=== PATIENT | female | born 1995 | race Caucasian/White ===

== ENCOUNTER 2018-07-10 14:00 | Outpatient (RCR) | payer OTHER, SELFPAY ==
--- NOTE | 2018-06-11 14:33 | HP.PTEVAL_ITS ---
Patient's Visit Information CARLENE SERRATO is a 22 year old F referred to Physical Therapy by Gregg Corral MD with a diagnosis of H/O SPINAL FUSION T5-T12 ADOLESCENT IDIOPATHETIC SCOLIOSIS THORACICLUMAR. Date of Evaluation: 06/11/18 Physical Therapist: Hemant Muro, PT, - Visit Plan Frequency: 2x /Week Duration: 4 Weeks Plan: Aquatic PT for thoracic,postural ex's,DLS,UE/LE strengtrhening,ROM - Subjective Subjective: This 22 y/o female presents to physical therapy to h/o spinal fusion T5-T12 and adolescent idiopathic scoliosis of thoracicolumbar.Patient has has scoliosis since 12 years old thus underwents s/p thoracic -lumbar fusion Oct 2007 , Jun to repair hardware 2007,. 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 Patient has had surgery from T1-T12.Pateint has had pain injections. Patient mutiple surgey's within 24 hours. Patient had extensive therapy. Patient then had last surgery to remove hardward. Patient has been having alot of pain in thoracic and right arm and right scapular.Thus patient had MRI of cervical spine. Patient has difficulty with ADL'S due to pain thus impairs QOL.Coughing /sneezing -. C/O parathesia right arm.Pain affects sleeping patterns. SOCAIL: lives with parents. VOCATION: unemployment - Pain Bilateral Back Pain Intensity (Out of 10): 3 Pain Intensity Range: 10 Right Shoulder Pain Intensity (Out of 10): 3 Pain Intensity Range: 10 - Objective POSTURE : increase lordosis lumbar ,right scapular protracted elevated , thoracic kyphosis. GAIT: normal eusebia reciprocal pattern. NEURO: c/o parathesia hand,refelxes C5-6-7,L3-4,L4-5,L5-S1 1/3. THORACIC ROM: NT. CERVICAL ROM: min loss flexion ,extension,lateral flexion,rotation,. MMT: 4/5 except 4-/5 shoulders ,BLE quads/hams 4/5,hip 4/5,ankle 4/5 - Special Tests C/S Radiculapathy - Left Upper limb tension test: Negative C/S Radiculapathy - Right Upper limb tension test: Negative L/S Slump test left side: Negative L/S Slump test right side: Negative L/S Left Straight Leg Raise: Negative L/S Right Straight Leg Raise: Negative - Goals Goal 1:: Patient to be Independant with aquatic PT Goal Time Frame: 4-6 Weeks Goal 2:: Patient to improve posture for ADL'S Goal Time Frame: 4-6 Weeks Goal 3:: Patient decrease thoracic ,scapular pain and arm symptoms to improve function with ADL'S Goal Time Frame: 4-6 Weeks Goal 4:: Patient be able to improve ability to perform ADL'S and housework tasks with min limiations Goal Time Frame: 4-6 Weeks Goal 5:: Patient d/c to prophalaxis Goal Time Frame: 4-6 Weeks - Rehabilitation Potential Physical Therapy Diagnosis: This patient has had mutiple thoracic-lumbar fusion and revision with complication causing patient to be incomplete paraplegic but has recovered with gait. Currently patient has experiencing pain right sacpular, thoracic,arm thus benifit from skilled PT Rehabilitation Potential: Good - Anticipated Interventions Patient/Client Instruction: Educate patient on: Condition, Plan of Care For the Purpose of:: To decrease pain, To increase ROM, To increase oxygenation perfusion, To improve ability to perform ADL's, To increase tolerance to activity/condition/position, To decrease level of supervision to perform tasks, To improve health of tissue, To decrease soft tissue restriction, To increase flexibility/ROM, To reduce risk of recurrence, To improve ability to perform tasks related to life management Therapeutic Exercise to Include: Strength training, Endurance training, Body mechanics, Postural training, Flexibilty training, In an aquatic setting, Dynamic Lumbar Stabilization Comment: UE/LE For the Purpose of:: To decrease pain, To increase ROM, To improve muscle performance and motor function, To increase tolerance to activity/condition/ position, To improve ability of physical actions for home/community/work/leisure , To improve health of tissue, To decrease soft tissue restriction, To increase flexibility/ROM, To improve ability to perform tasks related to life management Thank you for the opportunity to evaluate your patient. For Medicare and Medicare HMO plans, please review the plan of care and approve it. It will need to be FAXED BACK to us at [phone] for Medicare purposes. Please let me know if there are questions or concerns regarding this plan of care. Physician Signature: Date:
--- NOTE | 2018-10-08 14:14 | HP.PTDCSUM ---
HP - PT D/C Summary It has been my pleasure to treat CARLENE SERRATO under orders from Gregg Corral MD, for the diagnosis of H/O SPINAL FUSION T5-T12 ADOLESCENT IDIOPATHETIC SCOLIOSIS THORACICLUMAR for a total of 8 visit(s). Discharge Date: 07/10/18 Please see the following information for a summary of their discharge status. - Subjective Subjective: Patient stated that PT in water has helped with pain. Patient MD wants to seen neurologist. Plan to see MD - Pain Bilateral Back Pain Intensity (Out of 10): 2 Right Shoulder Pain Intensity (Out of 10): 1 Cerv. Spine Pain Intensity (Out of 10): 1 - Overall Improvement % Improvement: 50 - Objective Objective/Function: POSTURE: mild foward posture. GAIT: normal eusebia. NEURO: denies parathesia/tingling,reflexes intact. MMT: 4/5-BLE,BUE 4/5. CERVICAL ROM: flexion WFL,lateral flexion/rotation WFL,EXTENSION MOD LOSS. THORACIC: flexion mod loss ,extension mod/severe loss. -ANR - Goals Goal 1:: Patient to be Independant with aquatic PT Goal Progress: Goal Met Goal 2:: Patient to improve posture for ADL'S Goal Progress: Goal Met Goal 3:: Patient decrease thoracic ,scapular pain and arm symptoms to improve function with ADL'S Goal Progress: Progressing Goal 4:: Patient be able to improve ability to perform ADL'S and housework tasks with min limiations Goal Progress: Goal Met Goal 5:: Patient d/c to prophalaxis Goal Progress: Goal Met - Plan Plan: RTD - D/C Information Discharge Comments: RTD If there are questions or concerns regarding this patient's physical therapy, please feel free to call me at [phone]. Thank you for the referral of this patient. Sincerely, Hemant Muro, PT, Cert MDT, OCS
== END 2018-07-10 19:00 | disposition home or self-care (01) ==
LOC: PT 14:00
PROVIDERS: Family Provider Pediatrics; PCP Pediatrics; Visit Provider Orthopaedic Surgery Orthopaedic Surgery of the Spine
DX: Z98.1 Arthrodesis status (principal); M41.125 Adolescent idiopathic scoliosis, thoracolumbar region
CPT/HCPCS: 97113; 97162; 97530

== ENCOUNTER → 2021-06-10 | Outpatient (CLI) | payer MEDICAID, SELFPAY | END | disposition home or self-care (01) | PROVIDERS: PCP Pediatrics; Referring Provider Nurse Practitioner Family; Visit Provider Nurse Practitioner Family | DX: R05 Cough (principal) | CPT/HCPCS: 87635; U0005; U0003 ==